=== PATIENT | female | born 1945 ===

== ENCOUNTER 2020-10-20 05:30 | Day surgery (SDC) | payer OTHER ==
[~2020-10-20 05:30] MED LIST: COZAAR100 MG PO; SIMVASTA PO; TIROSINT75 MCG PO; TOPROL XL50 M1 PO; WELLBUTRIN XL300 MG PO; XANAX XR2 MG PO
[2020-10-20] MEDS ORDERED: PERCOCET 5-3251 EACH PO (08:59)
== END 2020-10-20 10:50 | disposition home or self-care (01) ==
LOC: CIR.AMB 05:30
PROVIDERS: ATTEND Surgery
DX: D35.1 Benign neoplasm of parathyroid gland (principal); Z20.822 Contact with and (suspected) exposure to COVID-19